=== PATIENT | female | born 1980 | race Caucasian/White ===

== ENCOUNTER → 2016-09-02 | Outpatient (CLI) | payer BC ==
--- NOTE | 2016-09-02 14:20 | US ---
EXAMINATION TYPE: US OB <=14 wks transvag DATE OF EXAM: 09/02/2016 1:52 PM COMPARISON: NONE CLINICAL HISTORY: Bleeding/spotting Antepartum O46.91. Patient believes she had miscarriage over week end, heavy clotting and bleeding. Positive beta-hCG test with bleeding. Patient states she had an ult rasound done at another facility on 08/12/2016 and a gestational sac and yolk sac was seen, but no fe ana luisa pole. She had heavy bleeding with clotting over the weekend, and believes she miscarried. EXAM PERFORMED: Transvaginal (TV) and Transabdominal (TA) pelvic ultrasound EXAM MEASUREMENTS: GESTATIONAL AGE / DATING Physician Established: not established Dates by LMP: (13 weeks/4 days) EDC: 03/06/2017 Dates by First Scan: this is first scan here Dates by Current Scan for: no IUP seen MATERNAL ANATOMY Uterus: 9.0 x 4.3 x 5.5 cm Right Ovary: 2.9 x 1.8 x 3.3 cm Left Ovary: 3.3 x 1.9 x 1.9 cm Post CDS / Adnexa: wnl Presence of free fluid: none GESTATION / SURVEY Date of LMP: 05/30/2016 TECHNOLOGIST IMPRESSION: Uterus is anteverted in shape. Endometrium is heterogeneous in appearance and thickened up to 14 mm. No gestational sac, yolk sac, or pole is seen. Small to moderate amount of fluid is seen in the endocervical endometrial canal. No free fluid is seen in pelvic cul-de-sac. Both ovaries are identified. No concerning extraovarian adnexal masses are seen. IMPRESSION: Findings based on patient's history likely reflect ongoing spontaneous , too early to visuali ze intrauterine and ectopic are not entirely excluded. Need to follow by serial b eta-hCG and ultrasound should be based on clinical correlation.
[2016-09-02 15:30] LABS: CH 28.9; CHCM 33.5; HCT 29.3 % (34.0-46.0); HDW 2.29; HGB 9.9 gm/dL (11.4-16.0); MCH 29.3 pg (25.0-35.0); MCHC 33.8 g/dL (31.0-37.0); MCV 86.6 fL (80.0-100.0); Mean Platelet Volume 7.5; RBC 3.38 m/uL (3.80-5.40); RDW 12.7 % (11.5-15.5); WBC 12.6 k/uL (3.8-10.6)
== END | disposition home or self-care (01) ==
LOC: RADUSWWP 13:13
PROVIDERS: ATTEND Obstetrics & Gynecology
DX: O46.91 Antepartum hemorrhage, unspecified, first trimester (principal); O02.1 Missed abortion
CPT/HCPCS: 76801; 76817; 84702; 85027

== ENCOUNTER → 2016-09-08 | Outpatient (CLI) | payer BC | LOC: LABWHC1 17:00 | PROVIDERS: ATTEND Obstetrics & Gynecology | CPT/HCPCS: 36415; 84702 ==

== ENCOUNTER → 2016-09-15 | Outpatient (CLI) | payer BC | END | disposition home or self-care (01) | LOC: LABWHC1 16:57 | PROVIDERS: ATTEND Obstetrics & Gynecology | DX: O03.9 Complete or unspecified spontaneous abortion without complication (principal) | CPT/HCPCS: 36415; 84702 ==

== ENCOUNTER 2018-07-31 00:35 | Inpatient (IN) | payer BC ==
[2018-07-31] MEDS ORDERED: LIDOCAINE 0.5% (PF) 5 MG/ML (50 ML SDV) SQ PRN (00:47)
[2018-07-31] MEDS ORDERED: METHYLERGONOVINE 0.2 MG/ML 1 ML AMP IM PRN (00:47)
[2018-07-31] MEDS ORDERED: CARBOPROST TROMETHAMINE 250 MCG/ML 1 ML AMP IM PRN (00:47)
[2018-07-31] MEDS ORDERED: OXYTOCIN 10 UNIT/ML 1 ML VIAL IM PRN ×2 (00:47→11:13)
[2018-07-31] MEDS ORDERED: TERBUTALINE 1 MG/ML VIAL SQ PRN (00:47)
[2018-07-31 01:02] VITALS: BMI 26.3
[2018-07-31] MEDS: LACTATED RINGERS 1,000 ML IV SCH ×2 (01:13→04:31)
[2018-07-31 01:22] LABS: Basophils % (A) 0 %; Eosinophils # (A) 0.1 k/uL (0-0.7); Eosinophils % (A) 1 %; HCT 36.9 % (34.0-46.0); HGB 12.2 gm/dL (11.4-16.0); Lymphocytes # (A) 2.9 k/uL (1.0-4.8); Lymphocytes % (A) 20 %; MCHC 33.2 g/dL (31.0-37.0); MCV 84.5 fL (80.0-100.0); Mean Platelet Volume 7.4; Monocytes # (A) 0.8 k/uL (0-1.0); Monocytes % (A) 5 %; Neutrophils # (A) 10.1 k/uL (1.3-7.7); Neutrophils % (A) 71 %; Platelet Count 303 k/uL (150-450); RBC 4.36 m/uL (3.80-5.40); RDW 13.9 % (11.5-15.5); WBC 14.4 k/uL (3.8-10.6)
[2018-07-31] MEDS ORDERED: ROPIVACAINE 5MG/ML 20ML VIAL ONE (01:40)
[2018-07-31] MEDS ORDERED: fentaNYL (PF) 50 MCG/ML 5 ML AMP ONE (01:40)
[2018-07-31] MEDS ORDERED: SODIUM CHLORIDE 0.9% 100 ML BAG ONE (01:40)
--- NOTE | 2018-07-31 01:46 | P.HPOB ---
History of Present Illness H&P Date: 07/31/18 Chief Complaint: Leaking of fluid This patient is a pleasant 38-year-old 3 para 0 female estimated date of confinement 08/13/2018 estimated gestational age 38 and one sevenths weeks who presents to labor and delivery with spontaneous rupture membranes at approximately midnight. Patient was having contractions throughout the day. care is complicated by advanced maternal age and she did see maternal medicine and had normal maternity T 21 (46 XX). She was also diagnosed with a short cervix earlier in the was followed closely with maternal- medicine and vaginal progesterone. Review of Systems Genitourinary: Reports Menstruation: Reports amenorrhea Past Medical History Past Medical History: No Reported History History of Any Multi-Drug Resistant Organisms: None Reported Additional Past Surgical History / Comment(s): d&c as teenager Past Anesthesia/Blood Transfusion Reactions: No Reported Reaction Past Psychological History: No Psychological Hx Reported Smoking Status: Former smoker Past Alcohol Use History: None Reported Past Drug Use History: None Reported - Past Family History Mother Family Medical History: No Reported History Medications and Allergies Home Medications Medication Instructions Recorded Confirmed Type 78/Iron/Folate 1/Dha 1 each PO DAILY 07/31/18 07/31/18 History [Prenate Dha Softgel] Allergies Allergy/AdvReac Type Severity Reaction Status Date / Time No Known Allergies Allergy Verified 07/31/18 00:41 Exam Vital Signs Temp Pulse Resp BP Pulse Ox 07/31/18 00:58 97.5 F L 100 18 128/92 07/31/18 00:53 97.5 F L 100 16 145/93 98 Intake and Output 07/30/18 07/30/18 07/31/18 14:59 22:59 06:59 Other: Weight 71.713 kg - OBG Physical Exam Abdomen: bowel sounds normal, no diffuse tenderness, no bruit present, no guarding noted, no hepatomegaly, no splenomegaly, no mass Vulva: both: normal Vagina: normal moisture, no discharge Cervix: no lesion (Cervix is 6 cm completely effaced -1 station.), no discharge Uterus: enlarged (Fundal height is consistent with a term ) Results blood work shows she is B negative, rubella immune, hepatitis B negative, RPR nonreactive, HIV nonreactive, Glucola was normal, level III ultrasounds were normal, with the exception of shortness cervix, maternal T 21 was normal. Result Diagrams: 07/31/18 00:47 Abnormal Lab Results - Last 24 Hours (Table) 07/31/18 Range/Units 00:47 WBC 14.4 H (3.8-10.6) k/uL Neutrophils # 10.1 H (1.3-7.7) k/uL Assessment and Plan Assessment: This is a pleasant 38-year-old 3 para 0 female 38 and one sevenths weeks gestation who is admitted to labor and delivery with spontaneous rupture membranes in active labor. Plan is anticipate normal vaginal delivery. (1) Elderly primigravida Current Visit: Yes Status: Acute Code(s): O09.519 - SUPERVISION OF ELDERLY PRIMIGRAVIDA, UNSPECIFIED TRIMESTER SNOMED Code(s): 76590396 (2) 40 weeks gestation of Current Visit: Yes Status: Acute Code(s): Z3A.40 - 40 WEEKS GESTATION OF SNOMED Code(s): 76591090 (3) SROM (spontaneous rupture of membranes) Current Visit: Yes Status: Acute Code(s): EQL9497 - SNOMED Code(s): 070716971 (4) Normal labor Current Visit: Yes Status: Acute Code(s): O80 - ENCOUNTER FOR FULL-TERM UNCOMPLICATED DELIVERY; Z37.9 - OUTCOME OF DELIVERY, UNSPECIFIED SNOMED Code(s ): 43804513 (5) Rh negative status during Current Visit: Yes Status: Acute Code(s): O26.899 - OTH RELATED CONDITIONS, UNSPECIFIED TRIMESTER; Z67.91 - UNSPECIFIED BLOOD TYPE, RH NEGATIVE SNOMED Code(s): 311355025
[2018-07-31] MEDS ORDERED: diphenhydrAMINE 50 MG/ML 1 ML VIAL IVP PRN (06:24)
[2018-07-31] MEDS ORDERED: BENZOCAINE/MENTHOL SPRAY 1 GM/SPRAY AEROSOL TOPICAL PRN (06:24)
[2018-07-31] MEDS ORDERED: Rhogam IMMUNE GLOBULIN 1,500 UNIT/1 ML IM ONE (06:24)
[2018-07-31] MEDS ORDERED: ZOLPIDEM 5 MG TAB PO PRN (06:24)
[2018-07-31] MEDS ORDERED: LANOLIN CREAM 5 GM TUBE TOPICAL PRN (06:24)
[2018-07-31] MEDS ORDERED: diphenhydrAMINE 25 MG CAP PO PRN (06:24)
[2018-07-31] MEDS ORDERED: BISACODYL 10 MG SUPP RECTAL PRN (06:24)
[2018-07-31] MEDS ORDERED: WITCH HAZEL 1 EACH MED..PAD TOPICAL PRN (06:24)
[2018-07-31] MEDS ORDERED: SIMETHICONE 80 MG CHEWABLE PO PRN (06:24)
[2018-07-31] MEDS ORDERED: HYDROCORTISONE 2.5% RECTAL CREAM 30 GM TUBE RECTAL PRN (06:24)
--- NOTE | 2018-07-31 06:31 | P.PROBDLV ---
Vaginal Delivery Note - . Vaginal Delivery Note: Normal spontaneous vaginal delivery viable female infant Apgars 9 and 10 delivery time is 0600 hours. . Please see dictated H&P for intimate details of this patient's admission. Brief summary this is a pleasant 38-year-old 3 para 0 female 38-2/7 weeks gestation admitted to labor and delivery with spontaneous rupture membranes in active labor. Patient gets an epidural for pain control. Her labor progresses normally. She pushes for approximately 45 minutes pushes the head to the perineum. Posterior perineum was supported and we have controlled delivery of the infant's head over the intact perineum. Mouth and nares are bulb suctioned. She does have a nuchal cord but continues to push and deliver is the anterior and posterior shoulder and rest this 's body. This is a vigorous viable female infant Apgars are 9 and 10 delivery time is 0600 hours. is late on the mother's abdomen the cord was allowed to stop pulsating then doubly clamped and cut. Cord blood is obtained for Rh status. Placenta spontaneously delivered intact. Estimated blood loss is 150 mL. Inspection of perineum shows second-degree laceration was repaired with 3- 0 Vicryl usual fashion. Excellent reapproximation is noted. All counts are correct 3. There are no complications. Infant and mother stable delivery room.
--- NOTE | 2018-07-31 06:41 | P.MSEPDOC ---
Presenting Problems - Arrival Data Date of Arrival on Unit: 07/31/18 Time of Arrival on Unit: 00:35 Mode of Transport: Wheelchair - Complaint OB-Reason for Admission/Chief Complaint: Rule Out SROM Medical History - Information : 3 Para: 0 Term: 0 : 0 Abortions: Spontaneous or Elective: 3 Number of Living Children: 0 - Gestational Age Gestational Age by FAINA (wks/days): 38 Weeks and 1 Days Review of Systems - Review of Systems Constitutional: No problems Breast: No problems ENT: No problems Cardiovascular: No problems Respiratory: No problems Gastrointestinal: No problems Genitourinary: No problems Musculoskeletal: No problems Neurological: No problems Skin: No problems Vital Signs - Temperature Temperature: 98.8 F Temperature Source: Temporal Artery Scan - Pulse Right Pulse Rate: 125 Pulse Assessment Method: Automatic Cuff - Respirations Respiratory Rate: 16 Oxygen Delivery Method: Room Air - Blood Pressure Right Arm Blood Pressure: 129/69 Blood Pressure Mean: 89 Blood Pressure Source: Automatic Cuff Medical Screen Scoring (Pre) - Cervical Exam Dilation: 4-7 cm = 2 Membranes: Ruptured = 3 - Uterine Contractions Frequency: > or = 36 weeks =2 Duration: > 40 seconds = 2 Intensity: N/A - Maternal Vital Signs Maternal Temperature: N/A Maternal Blood Pressure: N/A Signs of Preeclampsia: N/A Maternal Respirations: N/A - Pain Assessment Pain Location and Character: Lower, Abdomen Pain Scale Used: Numeric (1 - 10) Pain Intensity: 9 Pain Description: *Acute, Cramping Pain Frequency: Daily Pain Duration Units: Minutes Pain Behavior: Facial Grimacing, Vocalization Pain Aggravating Factors: Contractions - Maternal Trauma Maternal Trauma: N/A - Assessment Baseline FHR: 130 Heart Rate - NICHD Category: Category I (Normal) = 0 NST: Reactive Position: N/A Station: N/A - Total Score Total Score (Pre): 9 - Level of Risk Level of Risk: Medium (6-9) Physician Notification (Pre) - Physician Notified Physician Notified Date: 07/31/18 Physician Notified Time: 00:53 Physician/Practitioner Notifed:: Dr. Machado Spoke With: Dr. Machado New Order Received: Yes - Notification Comment Comment: Dr. Machado called and given report on pt in tr. ROM at 0000. vag exam of. 6/90/-2. GBS neg. Orders recieved to admit pt to unit. Disposition - Disposition OB Disposition: Admit, LDRP Suite I agree with the RN Medical Screening Exam: Yes Risk & Benefit of care provided described in d/c instruction: Yes Diagnosis: ENCOUNTER FOR FULL-TERM UNCOMPLICATED DELIVERY
[2018-07-31] MEDS: SENNOSIDES-DOCUSATE SODIUM 1 EACH TAB PO SCH (10:59)
[2018-07-31] MEDS ORDERED: OXYTOCIN 20 UNITS/1000 ML NS 1,000 ML IV SCH (11:15)
[2018-07-31] MEDS: IBUPROFEN 600 MG TAB PO PRN (12:43)
[2018-07-31 12:52] VITALS: RESP 16
[2018-07-31] MEDS: ACETAMINOPHEN TAB 325 MG TAB PO PRN (18:10)
[2018-08-01] MEDS: SENNOSIDES-DOCUSATE SODIUM 1 EACH TAB PO SCH ×2 (00:57→08:28)
[2018-08-01] MEDS: IBUPROFEN 600 MG TAB PO PRN (03:52)
--- NOTE | 2018-08-01 05:52 | P.PNOBGVD ---
Subjective - Subjective Patient reports: Reports appetite normal, Reports voiding normally, Reports pain well controlled, Reports ambulating normally : doing well Objective - Latest Vital Signs Latest vital signs: Vital Signs Temp Pulse Resp BP 08/01/18 00:00 98.2 F 89 16 133/73 07/31/18 16:00 98.1 F 96 16 123/85 07/31/18 12:30 98.4 F 85 16 111/70 07/31/18 08:15 98.2 F 101 H 16 128/75 07/31/18 08:00 112 H 16 07/31/18 07:45 97.7 F 112 H 16 140/66 07/31/18 07:15 121 H 16 157/84 07/31/18 07:00 115 H 16 134/66 07/31/18 06:45 120 H 16 125/67 07/31/18 06:41 98.8 F 125 H 16 129/69 07/31/18 06:30 125 H 16 129/69 07/31/18 06:15 98.8 F 127 H 16 129/73 Intake and Output 07/31/18 07/31/18 08/01/18 14:59 22:59 06:59 Other: # Voids 1 1 - Exam Lungs: bilateral: normal Chest: Normal S1, Normal S2 Extremities: Present: normal Abdomen: Present: normal appearance, soft Uterus: Present: normal, firm Assessment and Plan Assessment: day #1. Patient is resting without complaints. Patient wishes to go home today. Vital signs are stable and she is afebrile. Uterus is firm nontender she's having normal lochia. My impression is a normal course. Plan is to continue routine care discharge home later today. (1) Elderly primigravida Current Visit: Yes Status: Acute Code(s): O09.519 - SUPERVISION OF ELDERLY PRIMIGRAVIDA, UNSPECIFIED TRIMESTER SNOMED Code(s): 21181689 (2) 40 weeks gestation of Current Visit: Yes Status: Acute Code(s): Z3A.40 - 40 WEEKS GESTATION OF SNOMED Code(s): 11415048 (3) SROM (spontaneous rupture of membranes) Current Visit: Yes Status: Acute Code(s): WWD3860 - SNOMED Code(s): 347922464 (4) Normal labor Current Visit: Yes Status: Acute Code(s): O80 - ENCOUNTER FOR FULL-TERM UNCOMPLICATED DELIVERY; Z37.9 - OUTCOME OF DELIVERY, UNSPECIFIED SNOMED Code(s ): 73279428 (5) Rh negative status during Current Visit: Yes Status: Acute Code(s): O26.899 - OTH RELATED CONDITIONS, UNSPECIFIED TRIMESTER; Z67.91 - UNSPECIFIED BLOOD TYPE, RH NEGATIVE SNOMED Code(s): 695970544
--- NOTE | 2018-08-01 05:56 | P.DS ---
Providers Date of admission: 07/31/18 00:51 Expected date of discharge: 08/01/18 Attending physician: Nikita Machado Primary care physician: Stated None - Discharge Diagnosis(es) (1) Elderly primigravida Current Visit: Yes Status: Acute (2) 40 weeks gestation of Current Visit: Yes Status: Acute (3) SROM (spontaneous rupture of membranes) Current Visit: Yes Status: Acute (4) Normal labor Current Visit: Yes Status: Acute (5) Rh negative status during Current Visit: Yes Status: Acute Hospital Course: Please see dictated H&P for intimate details of this patient's admission. Brief summary is a pleasant 38-year-old 3 para 0 female 38-2/7 weeks gestation admitted to labor and delivery with spontaneous rupture membranes in active labor. Patient was on have a vaginal delivery viable female infant please see dictated delivery note. day 1 patient wishes to go home felt be stable for discharge home follow up with me in 6 weeks. Procedures: Normal spontaneous vaginal delivery Patient Condition at Discharge: Good Plan - Discharge Summary New Discharge Prescriptions: New Ibuprofen [Motrin] 600 mg PO Q6HR PRN #40 tab PRN Reason: Mild Pain Or Fever >= 100.5 No Action 78/Iron/Folate 1/Dha [Prenate Dha Softgel] 1 each PO DAILY Discharge Medication List 78/Iron/Folate 1/Dha [Prenate Dha Softgel] 1 each PO DAILY 07/31/18 [ History] Ibuprofen [Motrin] 600 mg PO Q6HR PRN #40 tab 08/01/18 [Rx] Follow up Appointment(s)/Referral(s): Nikita Machado MD [STAFF PHYSICIAN] - 6 Weeks Patient Instructions/Handouts: Vaginal Delivery (DC) Activity/Diet/Wound Care/Special Instructions: No intercourse or anything per vagina for 6 weeks. Please call if any fever, chills, excessive vaginal bleeding, and/or abdominal pain. Discharge Disposition: HOME SELF-CARE
[2018-08-01] MEDS: ACETAMINOPHEN TAB 325 MG TAB PO PRN (08:27)
[2018-08-01 09:47] VITALS: BP 117/65; PULSE 85; TEMP 98.1
== END 2018-08-01 14:13 | disposition home or self-care (01) | DRG 806 ==
LOC: FBPOP 00:35 → 4FBP 00:51
PROVIDERS: ADMIT Obstetrics & Gynecology; ATTEND Obstetrics & Gynecology
PROC: 10E0XZZ Delivery of Products of Conception, External Approach (ICD-10-PCS; principal; 2018-07-31)
PROC: 0KQM0ZZ Repair Perineum Muscle, Open Approach (ICD-10-PCS; 2018-07-31)
PROC: 00HU33Z Insertion of Infusion Device into Spinal Canal, Percutaneous Approach (ICD-10-PCS; 2018-07-31)
PROC: 3E0R3BZ Introduction of Anesthetic Agent into Spinal Canal, Percutaneous Approach (ICD-10-PCS; 2018-07-31)
PROC: 3E0234Z Introduction of Serum, Toxoid and Vaccine into Muscle, Percutaneous Approach (ICD-10-PCS; 2018-07-31)
DX: O69.81X0 Labor and delivery complicated by cord around neck, without compression, not applicable or unspecified (principal); O26.873 Cervical shortening, third trimester; Z37.0 Single live birth; O26.893 Other specified pregnancy related conditions, third trimester; Z67.21 Type B blood, Rh negative; O70.1 Second degree perineal laceration during delivery; Z3A.38 38 weeks gestation of pregnancy; Z79.899 Other long term (current) drug therapy; Z87.891 Personal history of nicotine dependence
CPT/HCPCS: 85025; 85461; 86850; 86900; 86901; 99213

== ENCOUNTER → 2021-05-06 | Outpatient (CLI) | payer BC ==
--- NOTE | 2021-05-07 14:13 | MM ---
Reason for exam: screening (asymptomatic). Baseline mammogram. History: Patient had first child at age 38. Family history of ovarian cancer in maternal grandmother. Physical Findings: Nurse did not find any significant physical abnormalities on exam. MG Screening Mammo w CAD Bilateral CC and MLO view(s) were taken. The breast tissue is heterogeneously dense. This may lower the sensitivity of mammography. There is no discrete abnormality. ASSESSMENT: Benign, BI-RAD 2 RECOMMENDATION: Routine screening mammogram of both breasts in 1 year. Patient should continue monthly self breast exams. A negative report should not preclude additional follow up of suspicious palpable abnormalities.
== END | disposition home or self-care (01) ==
LOC: RADMAMWWP 14:23
PROVIDERS: ATTEND Obstetrics & Gynecology
DX: Z12.31 Encounter for screening mammogram for malignant neoplasm of breast (principal); Z80.41 Family history of malignant neoplasm of ovary
CPT/HCPCS: 77067

== ENCOUNTER → 2021-09-11 | Outpatient (CLI) | payer BC ==
--- NOTE | 2021-09-11 10:52 | CT ---
EXAMINATION TYPE: CT ChestAbdPelvis wo/w con DATE OF EXAM: 09/11/2021 COMPARISON: None HISTORY: sudden weight loss 20lbs CT DLP: 1686 mGycm Automated exposure control for dose reduction was used. CONTRAST: CT scan of the chest, abdomen and pelvis is performed with Oral Contrast and with IV Contrast, patien t injected with 100ml mL of Isovue 300. FINDINGS: LUNGS: The lungs are grossly clear, there is no concerning parenchymal mass or nodule identified. T here is no pleural effusion or pneumothorax seen. The tracheobronchial tree is patent. MEDIASTINUM: There are no greater than 1 cm hilar or mediastinal lymph nodes. No pericardial effusi on is seen. AORTA: No significant abnormality is seen. OTHER: No additional significant abnormality is seen. LIVER/GB: No significant abnormality is appreciated. PANCREAS: No significant abnormality is seen. SPLEEN: No significant abnormality is seen. ADRENALS: No significant abnormality is seen. KIDNEYS: There is hydronephrosis on the right thought secondary to ureteropelvic junction obstruction , prominent extrarenal pelvis is seen. No evident nephrolithiasis, extrarenal pelvis is present on th e left. Symmetric enhancement is present, excretion present bilaterally, cortical cysts suspected at the lower pole REPRODUCTIVE ORGANS: Cystic focus left adnexa likely represents a follicle, uterus and ovaries though t to be within normal limits, some heterogeneity is noted in the enhancement of the uterus, may be a nabothian cyst present at the cervix level. BOWEL: No significant abnormality is seen. Contrast does reach the proximal descending colon but not more distal FREE AIR: No Free Air visible. ASCITES: None seen. RETROPERITONEAL ADENOPATHY: No retroperitoneal adenopathy is seen. LYMPH NODES: No greater than 1 cm abdominal or pelvic lymph nodes are appreciated. URINARY BLADDER: No significant abnormality is seen. PELVIC ADENOPATHY: None visualized. OSSEOUS STRUCTURES: No significant abnormality is seen. 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 Additional findings abov e.
== END | disposition home or self-care (01) ==
LOC: RADCTMAIN 07:41
PROVIDERS: ATTEND Family Medicine
DX: N13.2 Hydronephrosis with renal and ureteral calculous obstruction (principal)
CPT/HCPCS: 71270; 74178; Q9967

== ENCOUNTER → 2021-10-09 | Outpatient (CLI) | payer BC ==
[~2021-10-09] MED LIST: FUROSEMIDE 10 MG/ML 2 ML VIAL IV ONE
--- NOTE | 2021-10-09 16:08 | NM ---
EXAMINATION TYPE: NM lasix renogram DATE OF EXAM: 10/09/2021 COMPARISON: NONE HISTORY: Obstruction right UPJ Following administration of 10.7 mCi Tc 99m MAG3 with 20mg Lasix. Immediate images post injection FINDINGS: Left: 49.5 %. Right: 50.5 %. Max renal flow left: 3 minutes. Max renal flow right: 50.5 minutes. Following Lasix injection there is excretion increased in the left kidney. Right renal excretion is m ilder excretion without reaching the T 1 half during the examination. T 1/2 left: 13.4 minutes. T 1/2 right: NA minutes. IMPRESSION: 1. Findings compatible with right renal collecting system obstruction. 2. Normal left renal Lasix exam
== END | disposition home or self-care (01) ==
LOC: RADNMMAIN 12:50
PROVIDERS: ATTEND Urology
DX: N13.5 Crossing vessel and stricture of ureter without hydronephrosis (principal)
CPT/HCPCS: 78708; A9562

== ENCOUNTER → 2021-10-16 | Outpatient (CLI) | payer BC ==
[2021-10-16 10:21] VITALS: BMI 18.3
== END ==
LOC: DBWHC3 08:59
PROVIDERS: ATTEND Family Medicine
DX: R63.4 Abnormal weight loss (principal); Z68.1 Body mass index [BMI] 19.9 or less, adult; Z87.891 Personal history of nicotine dependence
CPT/HCPCS: 97802

== ENCOUNTER → 2021-12-05 | Outpatient (CLI) | payer BC ==
[2021-12-05 19:35] LABS: Basophils # (A) 0.07 X 10*3/uL (0.00-0.10); Eosinophils # (A) 0.03 X 10*3/uL (0.04-0.35); Eosinophils % (A) 0.4 %; HCT 40.1 % (37.2-46.3); HGB 12.7 g/dL (12.0-15.0); Immature Grans, Automated 0.1 %; Lymphocytes # (A) 2.37 X 10*3/uL (0.90-5.00); Lymphocytes % (A) 35.2 %; MCH 27.1 pg (27.0-32.0); MCHC 31.7 g/dL (32.0-37.0); MCV 85.7 fL (80.0-97.0); Mean Platelet Volume 10.2 fL (9.5-12.2); Monocytes % (A) 5.9 %; NRBC Per 100 WBC 0 /100 WBCS (0.0-0.0); Neutrophils # (A) 3.86 X 10*3/uL (1.80-7.70); Neutrophils % (A) 57.4 %; Platelet Count 343 X 10*3/uL (140-440); RBC 4.68 X 10*6/uL (4.10-5.20); RDW 13.7 % (11.5-14.5); WBC 6.74 X 10*3/uL (4.50-10.00)
[2021-12-05 20:57] LABS: Appearance,Urine Clear (Clear); Bilirubin,Urine Negative (Negative); Blood,Urine Small (Negative); Color,Urine Yellow (Yellow); Ketones,Urine Negative (Negative); Nitrite,Urine Negative (Negative); Specific Gravity,Urine 1.013 (1.001-1.030); Urobilinogen,Urine 0.2 (0.2,1.0)
[2021-12-05 21:07] LABS: Bacteria,Urine Trace /HPF (None Seen)
[2021-12-05 22:53] LABS: African American GFR (CKD) 109.4 (60.0-200.0); Anion Gap 11.4 mmol/L (10.00-18.00); BUN/Creat Ratio 19.2 Ratio (12.00-20.00); Blood Urea Nitrogen 14.9 mg/dL (9.0-27.0); Calcium 9.5 mg/dL (8.7-10.3); Carbon Dioxide 22.1 mmol/L (20.0-27.5); Non-African American GFR(CKD) 94.3 (60.0-200.0); Potassium 4.4 mmol/L (3.5-5.5)
== END | disposition home or self-care (01) ==
LOC: LABPAT 11:35
PROVIDERS: ATTEND Urology
DX: Z01.812 Encounter for preprocedural laboratory examination (principal); N13.30 Unspecified hydronephrosis
CPT/HCPCS: 36415; 80048; 81001; 85025; 87086

== ENCOUNTER 2021-12-12 09:38 | Inpatient (IN) | payer BC ==
--- NOTE | 2021-12-11 08:36 | P.HPIHPCON ---
History of Present Illness This is a 41-year-old female with history of right-sided hydronephrosis, she symptomatically from her hydronephrosis. Underwent a Lasix renogram which was consistent with UPJ obstruction. Discussed with her given this finding of the option of a robotic pyeloplasty. Discussed with her the risk of surgery which includes but not limited to bleeding, infection, injury to the kidney, injury to nearby organs which includes but not limited to the liver and bowel. Discussed also potential of persistent pain even with correction of pyeloplasty. Discussed risk of recurrence. Discussed that she will have a stent postoperatively. Consent for Procedure: I have explained the operation/procedure to the patient, including the risks, benefits, side effects, alternative therapies (including not receiving the proposed treatment or service), the likelihood of the patient achieving his/her goals, and potential recuperation problems for the procedure/sedation/analgesia, as well as any blood products, if indicated. I also explained to the patient the risks, benefits and side effects of the alternatives, as well as the risks related to not receiving the proposed procedure, care, treatment, or services. Past Medical History Past Medical History: No Reported History Additional Past Medical History / Comment(s): c/o wgt loss, nausea, back pain. Pos Covid 11/05/21 w/ minor sx only. History of Any Multi-Drug Resistant Organisms: None Reported Additional Past Surgical History / Comment(s): d&c as teenager Past Anesthesia/Blood Transfusion Reactions: No Reported Reaction Smoking Status: Former smoker - Past Family History Mother Family Medical History: No Reported History Medications and Allergies Home Medications Medication Instructions Recorded Confirmed Type Acetaminophen [Tylenol Extra 500 - 1,000 mg PO DIRECTED PRN 12/09/21 12/09/21 History Strength] Ibuprofen [Advil] 200 mg PO Q8HR PRN 12/09/21 12/09/21 History Allergies Allergy/AdvReac Type Severity Reaction Status Date / Time No Known Allergies Allergy Verified 12/09/21 16:48 Surgical - Exam - General well developed, well nourished, no distress - Respiratory normal respiratory effort, clear to auscultation - Abdomen Abdomen: soft, non tender, no guarding, no rigid, no rebound Assessment and Plan Assessment: OR for right-sided robotic pyeloplasty
[2021-12-12] MEDS ORDERED: ONDANSETRON 4 MG/2 ML VIAL IVP ONE (10:02)
[2021-12-12] MEDS ORDERED: DEXAMETHASONE SOD PHOSPHATE 4 MG/ML 1 ML VIAL IV ONE (10:02)
[2021-12-12] MEDS ORDERED: HYDROmorphone 0.5 MG/0.5 ML SYRINGE IVP PRN (10:02)
[2021-12-12] MEDS: LACTATED RINGERS 1,000 ML IV SCH (10:31)
[2021-12-12] MEDS ORDERED: MIDAZOLAM 2 MG/2 ML VIAL IVP ONE (11:27)
[2021-12-12] MEDS ORDERED: DEXAMETHASONE SOD PHOSPHATE 10 MG/ML 1 ML VIAL ONE (12:30)
[2021-12-12] MEDS ORDERED: GLYCOPYRROLATE 0.2 MG/ML 2 ML VIAL ONE (12:30)
[2021-12-12] MEDS ORDERED: PROPOFOL 10 MG/ML 20 ML VIAL IV ONE (12:30)
[2021-12-12] MEDS ORDERED: LIDOCAINE 2% INJ 20 MG/ML (2 ML VIAL) ONE (12:30)
[2021-12-12] MEDS ORDERED: MIDAZOLAM 2 MG/2 ML VIAL ONE (12:30)
[2021-12-12] MEDS ORDERED: SUCCINYLCHOLINE CHLORIDE 100 MG/5 ML SYR IV ONE (12:30)
[2021-12-12] MEDS ORDERED: SODIUM CHLORIDE 0.9% (PF) 10 ML VIAL ONE (12:30)
[2021-12-12] MEDS ORDERED: PHENYLEPHRINE-0.9% NACL SYG 1,000 MCG/10 ML SYRINGE ONE (12:30)
[2021-12-12] MEDS ORDERED: fentaNYL (PF) 50 MCG/ML 2 ML AMP ONE (12:30)
[2021-12-12] MEDS ORDERED: ROCURONIUM 10 MG/ML (5 ML VIAL) IV ONE (12:30)
[2021-12-12] MEDS ORDERED: NEOSTIGMINE 1 MG/ML 10 ML VIAL ONE (12:30)
[2021-12-12] MEDS ORDERED: ROPIVACAINE 5 MG/ML 30 ML VIAL ONE (12:30)
[2021-12-12] MEDS ORDERED: LACTATED RINGERS 1,000 ML IV ONE ×2 (13:05→16:20)
[2021-12-12] MEDS ORDERED: BUPIVACAINE (PF) 0.25% 30 ML VIAL SQ ONE ×3 (13:22→14:04)
[2021-12-12] MEDS ORDERED: KETOROLAC 15 MG/ML 1 ML VIAL IVP ONE (14:43)
[2021-12-12] MEDS ORDERED: HYDROmorphone 0.5 MG/0.5 ML SYRINGE SQ ONE (14:45)
--- NOTE | 2021-12-12 14:58 | P.OP ---
Date of Procedure: 12/12/21 Preoperative Diagnosis: right sided hydronephrosis Postoperative Diagnosis: Same Procedure(s) Performed: right sided Robotic ureterolysis Anesthesia: RAMY Surgeon: Luis Lopes Size Cutter #1: Neeta Shore Estimated Blood Loss (ml): 25 Pathology: none sent Condition: stable Disposition: PACU Indications for Procedure: This is a 41-year-old female with history of right-sided hydronephrosis, she symptomatically from her hydronephrosis. Underwent a Lasix renogram which was consistent with UPJ obstruction. Discussed with her given this finding of the option of a robotic pyeloplasty. Discussed with her the risk of surgery which includes but not limited to bleeding, infection, injury to the kidney, injury to nearby organs which includes but not limited to the liver and bowel. Discussed also potential of persistent pain even with correction of pyeloplasty. Discussed risk of recurrence. Discussed that she will have a stent postoperatively. Operative Findings: Significant kinking at the UPJ with thickened scar tissue. Description of Procedure: Patient brought to the operating room, general anesthesia was induced. A 16- Guamanian Chavez catheter was placed. Next patient was positioned in modified flank position. She was prepped and draped in sterile fashion. Next insufflation was obtained using a Veress needle, this was performed to ensure needle was in the peritoneal cavity. Next an 8 mm robotic trocar was placed, and then 3 additional robotic 8 mm trochars were placed along the right midclavicular line. Next a 12 mm bindery assistant port was placed supraumbilically. Next the robot was docked in place. Next the colon was mobilized along the white line of Toldt. Dissection was continued until the vena cava and gonadal vein was dentified. Next the ureter was identified and this was traced back to the renal pelvis. Of note there was significant amount of scar tissue right at the UPJ causing significant kinking of the ureter. The ureter was completely kinked and displaced posteriorly. there was significant dilation of the collecting system. Next all the scar tissue was incised, ensuring leaving the periureteral tissues intact in order to maintain the ureteral blood supply. After lysing all of the adhesion around the proximal ureter and the UPJ, the ureter was straightened out and there was excellent peristalsis and there was evidence of decompression of the renal pelvis. The ureter was observed for approximately 10 minutes and there appeared to be excellent peristalsis and evidence of drainage of urine down the ureter. Given this finding decision was made not to perform a dismembered pyeloplasty. Next the robot was undocked, the supraumbilical fascia was closed using 2-0 Vicryl in a [id number] fashion. All the skins were closed with 4-0 Monocryl and Dermabond. Patient tolerated procedure well was taken to recovery in stable condition
[2021-12-12] MEDS ORDERED: HYDROmorphone 0.5 MG/0.5 ML SYRINGE IVP ONE ×2 (15:00→15:35)
[2021-12-12] MEDS: HEPARIN SODIUM,PORCINE/PF 5,000 UNIT/0.5 ML SYRINGE SQ SCH (17:19)
[2021-12-12] MEDS: KETOROLAC 15 MG/ML 1 ML VIAL IVP SCH (18:12)
[2021-12-12] MEDS: HYDROcodone/APAP 5-325MG 1 EACH TAB PO PRN ×2 (19:17→23:19)
[2021-12-12] MEDS: D5-0.45% NACL WITH KCL 20MEQ/L 1,000 ML IV SCH (22:21)
[2021-12-13] MEDS: D5-0.45% NACL WITH KCL 20MEQ/L 1,000 ML IV SCH ×2 (00:12→06:00)
[2021-12-13] MEDS: HEPARIN SODIUM,PORCINE/PF 5,000 UNIT/0.5 ML SYRINGE SQ SCH ×2 (00:15→07:30)
[2021-12-13] MEDS: KETOROLAC 15 MG/ML 1 ML VIAL IVP SCH ×3 (00:15→11:25)
[2021-12-13] MEDS: HYDROcodone/APAP 5-325MG 1 EACH TAB PO PRN ×2 (07:30→11:24)
[2021-12-13 07:36] VITALS: BP 93/55; PULSE 69; RESP 18; TEMP 98.7
[2021-12-13] MEDS: LACTATED RINGERS 1,000 ML IV SCH (11:01)
[2021-12-13 13:54] VITALS: BMI 17.2
--- NOTE | 2021-12-14 18:34 | P.ANPRN ---
Procedure Note - Anesthesia - Nerve Block Performed Bilateral Erector Spinae Single Time Out Performed: Yes Date of Procedure: 12/12/21 Procedure Start Time: : Procedure Stop Time: :32 Location of Patient: PreOp Indication: Acute Post-Operative Pain, Requested by Surgeon Sedation Type: Sedate with meaningful contact maintained Preparation: Sterile Prep Position: Prone Needle Types: Pajunk Needle Gauge: 21 Ultrasound used to visualize needle placement: Yes Ultrasound used to observe medication spread: Yes Blood Aspirated: No Pain Paresthesia on Injection Noted: No Resistance on Injection: Normal Image Stored and Saved: Yes Events: Uneventful and Well Tolerated (ropi .5% 15cc plus ns 10cc plus dexamethasone 4mg given bilaterally at L1)
== END 2021-12-13 14:23 | disposition home or self-care (01) | DRG 661 ==
LOC: 2ORMAIN 09:38 → 4SSUR 15:30
PROVIDERS: ADMIT Urology; ATTEND Urology
PROC: 0TN64ZZ Release Right Ureter, Percutaneous Endoscopic Approach (ICD-10-PCS; principal; 2021-12-12 11:30)
PROC: 8E0W8CZ Robotic Assisted Procedure of Trunk Region, Via Natural or Artificial Opening Endoscopic (ICD-10-PCS; principal; 2021-12-12 11:30)
DX: N13.1 Hydronephrosis with ureteral stricture, not elsewhere classified (principal); Z79.1 Long term (current) use of non-steroidal anti-inflammatories (NSAID); Z79.82 Long term (current) use of aspirin; Z87.891 Personal history of nicotine dependence; Z98.890 Other specified postprocedural states; Z28.310 Unvaccinated for COVID-19; Z86.16 Personal history of COVID-19; Z28.21 Immunization not carried out because of patient refusal
CPT/HCPCS: 64999; 81025; 86850; 86900; 86901

== ENCOUNTER → 2022-04-07 | Outpatient (CLI) | payer BC ==
--- NOTE | 2022-04-07 14:52 | NM ---
INDICATION: Patient age:Female; 42 years old; Reason for study: N13.30 hydronephrosis; PH[facility]. COMPARISON: Nuclear medicine Lasix renogram 10/09/2021. TECHNIQUE: 10.45 mCi of technetium 99m labeled MAG3 was administered intravenously with 20 mg Lasix. Immediate images post injection. FINDINGS: Dynamic perfusion images demonstrate prompt accumulation of radiotracer within both kidneys. Similarl y the functional images of both kidneys demonstrate relatively symmetric excretion of activity with similar washout all cortical activity. Split renal function for the kidneys (uptake %): 46.7 right and 53.3 left which is within normal limits. (Normal is within 10% of each other) Max renal flow left: 2.67 minutes. Max renal flow right: 3 minutes. Time of half Lasix: Left 17.1 minutes. Right 14.6 minutes. The excretion curves demonstrated a normal pattern with no evidence to suggest obstruction. IMPRESSION: Normal bilateral renal Lasix examination with resolution of right collecting system obstruction.
== END | disposition home or self-care (01) ==
LOC: RADNMMAIN 12:54
PROVIDERS: ATTEND Urology
DX: N13.30 Unspecified hydronephrosis (principal)
CPT/HCPCS: 78708; A9562

== ENCOUNTER → 2022-05-07 | Outpatient (CLI) | payer BC ==
--- NOTE | 2022-05-08 09:26 | MM ---
Reason for Exam: Screening (asymptomatic). Last screening mammogram was performed 12 month(s) ago. Patient History: Menarche at age 12. First Full-Term at age 38. Late child-bearing (after 30). Maternal grandmother had breast cancer, age 68. Risk Values: Frieda 5 year model risk: 1.0%. NCI Lifetime model risk: 13.2%. Prior Study Comparison: 05/06/2021 Bilateral Screening Mammogram, [facility]. Tissue Density: The breast tissue is heterogeneously dense. This may lower the sensitivity of mammography. Findings: Analyzed By CAD. There is no suspicious group of microcalcifications or new suspicious mass in either breast. Overall Assessment: Benign, BI-RAD 2 Management: Screening Mammogram of both breasts in 1 year. A clinical breast exam by your physician is recommended on an annual basis and results should be correlated with mammographic findings. Electronically signed and approved by: Jeremy Chowdhury D.O.
== END | disposition home or self-care (01) ==
LOC: RADMAMWWP 09:11
PROVIDERS: ATTEND Obstetrics & Gynecology
DX: Z12.31 Encounter for screening mammogram for malignant neoplasm of breast (principal); Z80.3 Family history of malignant neoplasm of breast
CPT/HCPCS: 77067

== ENCOUNTER → 2023-12-29 | Outpatient (CLI) | payer BC ==
[2023-12-29 15:00] VITALS: BP 107/70; PULSE 64; RESP 16; TEMP 98
--- NOTE | 2023-12-29 16:05 | P.HPOB ---
History of Present Illness H&P Date: 12/29/23 Chief Complaint: The patient is here for her routine gynecologic exam and ma mmogram. This is a 43-year-old with an LMP of 12/22/2023. The patient is here to establish with this office. It has been about 1 year since her last pelvic exam. Her is status post vasectomy. She states her menstrual periods were regular every month until about June of this year. She states she had 2 months where her menstrual bleeding was more frequent than usual and she had a shorter amount of time between periods. After those 2 months, they have gotten back to normal. She believes it may have been related to increased stress during those times. She is otherwise without gynecologic complaints. Review of Systems The patient's weight has been stable over the last year. She did lose about 20 pounds unexpectedly about 2 to 3 years ago. This was around the time of a ureteral obstruction that was fixed surgically. She thinks it may have been related to that since she had difficulty eating during that time. She states she has not gained the weight back after it was corrected. She denies respiratory, cardiac, or G.I. problems. Past Medical History Past Medical History: GERD/Reflux, Hyperlipidemia Additional Past Medical History / Comment(s): Spastic bowel problems. PAST [employer] HISTORY: She has no history of STDs. History of Any Multi-Drug Resistant Organisms: None Reported Additional Past Surgical History / Comment(s): .VTP. REMOVAL OF SCAR TISSUE OFF URETER for obstruction 2021. Colonoscopy with upper endoscopy 2022(next colonoscopy after 10yr). Past Anesthesia/Blood Transfusion Reactions: No Reported Reaction Past Psychological History: No Psychological Hx Reported Additional Psychological History / Comment(s): no tx currently Smoking Status: Former smoker, Vaper (Intermittent vaper.) Past Alcohol Use History: Occasional (About 10/year.) Additional Past Alcohol Use History / Comment(s): Smoked 19 years, quit 04/28/21. Past Drug Use History: Marijuana (Not every day.) Additional History: She has been with her partner since approximately 1998 and they live together. She works as a regional business development manager. - Past Family History Mother Family Medical History: No Reported History Additional Family Medical History / Comment(s): Maternal grandmother and maternal great grandmother had breast cancer. Father Family Medical History: Unable to Obtain Medications and Allergies Home Medications Medication Instructions Recorded Confirmed Type Atorvastatin [Lipitor] 20 mg PO DAILY 08/13/22 12/29/23 History Cholecalciferol [Vitamin D3 (125 125 mcg PO DAILY 08/13/22 12/29/23 History Mcg = 5000 Iu)] Citalopram Hydrobromide 20 mg PO DAILY 08/13/22 12/29/23 History [Citalopram HBr] Cyanocobalamin (Vitamin B-12) 5,000 mcg PO DAILY 08/13/22 12/29/23 History [Vitamin B-12] Ferrous Sulfate [Feosol] 325 mg PO DAILY 08/13/22 12/29/23 History Omeprazole [PriLOSEC] 40 mg PO DAILY 08/13/22 12/29/23 History Allergies Allergy/AdvReac Type Severity Reaction Status Date / Time No Known Allergies Allergy Verified 12/29/23 14:45 Exam Vital Signs Temp Pulse Resp BP Pulse Ox 12/29/23 14:45 98 F 64 16 107/70 99 Intake and Output 12/29/23 12/29/23 12/29/23 06:59 14:59 22:59 Other: Weight 46.266 kg Height 5 feet 5 inches, weight 102 pounds, BMI 17.0. This is a well-developed thin white female who is alert and oriented times 3 in no acute distress. HEENT: Within normal limits. NECK: Supple without mass or thyromegaly. CHEST AND LUNGS: Clear to auscultation. HEART: Regular rate and rhythm. BREASTS: Are without mass or discharge. AXILLARY EXAM: Negative for adenopathy. BACK: Negative for CVA tenderness. ABDOMEN: Soft, nontender, without palpable masses. PELVIC EXAM: Normal external genitalia. Cervix and vagina appear normal. There is no unusual discharge. There is no evidence of prolapse. The uterus is midposition, nongravid size and nontender. There are no palpable adnexal masses or tenderness. RECTAL EXAM: negative for mass or tenderness and is negative for occult blood. EXTREMITIES: Nontender. IMPRESSION: 1. 43-year-old female whose is status post vasectomy, with normal gynecologic exam. 2. Slight transient menstrual irregularity during the months of June and July 2023. This has since resolved. PLAN: 1. Pap smear cotest was performed. 2. Self breast awareness was discussed with the patient. We have also discussed symptoms associated with inflammatory breast cancer. 3. Screening mammogram will be done today. 4. Osteoporosis prevention was discussed. I have stressed the importance of adequate calcium, vitamin D and regular exercise. Recommended amounts of calcium and vitamin D were also discussed. 5. The patient will keep a menstrual calendar and return if she is having menstrual irregularities or problems. 6. She was advised to return in one year for her annual well woman exam and as needed.
== END ==
LOC: WWCWWP 14:37
PROVIDERS: ATTEND Obstetrics & Gynecology
DX: Z01.419 Encounter for gynecological examination (general) (routine) without abnormal findings (principal); N92.6 Irregular menstruation, unspecified; Z80.3 Family history of malignant neoplasm of breast; Z87.891 Personal history of nicotine dependence

== ENCOUNTER → 2023-12-29 | Outpatient (CLI) | payer BC ==
--- NOTE | 2024-01-02 17:40 | MM ---
Reason for Exam: Screening (asymptomatic). Last mammogram was performed 1 year(s) and 8 month(s) ago. Patient History: Menarche at age 12. First Full-Term at age 38. Late child-bearing (after 30). Patient has history of breast feeding. Maternal grandmother had breast cancer, age 68. Last menstrual period: 12/22/2023 Risk Values: Frieda 5 year model risk: 1.1%. NCI Lifetime model risk: 13.1%. Prior Study Comparison: 05/06/2021 Bilateral Screening Mammogram, [facility]. 05/07/2022 Bilateral MG screening mammo w CAD, [facility]. Tissue Density: The breasts are heterogeneously dense, which may obscure small masses. Findings: Analyzed By CAD. Unchanged global asymmetry superior left breast. There is no suspicious group of microcalcifications or new suspicious mass in either breast. Overall Assessment: Benign, BI-RAD 2 Management: Screening Mammogram of both breasts in 1 year. . Patient should continue monthly self-breast exams. A clinical breast exam by your physician is recommended on an annual basis. This exam should not preclude additional follow-up of suspicious palpable abnormalities. Note on Frieda scores and lifetime risk: 1. A Frieda score greater than 3% is considered moderate risk. If this is the case, consider specialist referral to assess eligibility for a risk reducing agent. 2. If overall lifetime risk for the development of breast cancer is 20% or higher, the patient may qualify for future screening with alternating mammogram and breast MRI. Electronically signed and approved by: Kiran Pena M.D. Radiologist
== END | disposition home or self-care (01) ==
LOC: RADMAMWWP 14:31
PROVIDERS: ATTEND Family Medicine
DX: Z12.31 Encounter for screening mammogram for malignant neoplasm of breast (principal); Z80.3 Family history of malignant neoplasm of breast
CPT/HCPCS: 77063; 77067

== ENCOUNTER → 2023-12-30 | Outpatient (CLI) | payer BC ==
--- NOTE | 2023-12-30 14:21 | MR ---
EXAMINATION TYPE: MR brain wo/w con DATE OF EXAM: 12/30/2023 COMPARISON: None HISTORY: Dizziness. TECHNIQUE: Multiplanar, multisequence images of the brain and brainstem is performed without and with IV contras t, utilizing 4.5 mL intravenous Gadavist . FINDINGS: The wadsworth-white junctions, ventricular system, basal cisterns appear unremarkable. Diffusion-weighted imaging shows no evidence of restricted diffusion to suggest acute/subacute infarct. Intracranial art erial flow voids are maintained. Midline structures show no abnormality. Patchy areas of high T2/FLAI R signal intensity are seen within the periventricular and subcortical white matter. This is most pro minent within the occipital and parietal lobes bilaterally. These are T1 hypointense. Largest in the left frontal lobe measuring up to 6 mm (series 601, 26). Example in the right parietal lobe measures 10 mm (series 601, image 20). A few lesions appear somewhat perpendicular to the lateral ventricles. No enhancement identified. No other regions of abnormal enhancement. The susceptibility weighted imag es do not reveal any evidence for micro-hemorrhage. The bone marrow signal is within normal limits. Likely 1 cm mucous retention cyst within the inferior right maxillary sinus posteriorly. The remaining paranasal sinuses and globes are unremarkable. IMPRESSION: Several periventricular and subcortical white matter T2/FLAIR hyperintense lesions identified. Predom inantly in the bilateral parietal and occipital lobes. No corresponding enhancement identified. Findi ngs could be seen with demyelinating process such as multiple sclerosis versus other etiologies. Furt her workup is recommended.
== END | disposition home or self-care (01) ==
LOC: RADMRIMAIN 06:49
PROVIDERS: ATTEND Family Medicine
DX: G93.89 Other specified disorders of brain (principal)
CPT/HCPCS: 70553; A9585